=== PATIENT | female | born 1955 | race Caucasian/White ===

== ENCOUNTER → 2016-12-19 | Outpatient (CLI) | payer BC ==
--- NOTE | 2016-12-19 18:09 | WOMENS IMAGING REPORT ---
EXAM DESCRIPTION: BILAT SCREENING MAMMO W/CAD COMPLETED DATE/TIME: 12/19/2016 3:59 pm REASON FOR STUDY: ROUTINE SCREENING; Z12.31 Z12.31 ENCNTR SCREEN MAMMOGRAM FOR MALIGNANT NEOPLASM O F EDMUND COMPARISON: 2011, 2014 TECHNIQUE: Standard craniocaudal and mediolateral oblique views of each breast recorded using epicurioa l acquisition. LIMITATIONS: None. FINDINGS: Findings present which are benign by mammographic criteria. No suspicious masses, calcifi cations or architectural distortion. Pertinent benign findings: Stable benign bilateral nodules and calcifications Read with the assistance of CAD. .[facility] - R2 Cenova Version 1.3 .[facility] - R2 Cenova Version 1.3 .[facility] - R2 Cenova Version 2.4 .[facility] [place] - R2 Cenova Version 2.4 .[facility] - R2 Logistical Engineer Version 9.2 Benign mammographic findings may include one or more of the following: Smooth masses, popcorn/rim/co arse calcifications, asymmetries, post-procedure changes, and lesions with long-standing stability. IMPRESSION: BENIGN MAMMOGRAPHIC FINDINGS. BIRADS 2 BREAST DENSITY: b. There are scattered areas of fibroglandular density. BIRAD: 2 BENIGN FINDING(S) RECOMMENDATION: ROUTINE SCREENING Please consider bilateral screening tomosynthesis in December 2017. COMMENT: The patient has been notified of the results by letter per MQSA requirements. Additional no tification policies are in place for contacting patient with suspicious or incomplete findings. Quality ID #[id number]: The [employer] recommends an annual screening mammogram for women aged 40 years or over. This facility utilizes a reminder system to ensure that all patients receive reminder letters, and/or direct phone calls for appointments. This includes reminders for routine scr eening mammograms, diagnostic mammograms, or other Breast Imaging Interventions when appropriate. Th is patient will be placed in the appropriate reminder system. The [employer] (ACR) has developed recommendations for screening MRI of the breast s in certain patient populations, to be used in conjunction with mammography. Breast MRI surveillanc e may be appropriate for women with more than 20% lifetime risk of developing breast cancer as deter mined by genetic testing, significant family history of the disease, or history of mantle radiation f or Hodgkins Disease. ACR Practice Guidelines 2008. TECHNICAL DOCUMENTATION: FINDING NUMBER: (1) ASSESSMENT: (1) JOB ID: [id number] [employer] All Rights Reserved
== END ==
LOC: WI 15:23
PROVIDERS: ATTEND Family Medicine
DX: Z12.31 Encounter for screening mammogram for malignant neoplasm of breast (principal)
CPT/HCPCS: 77067; G0202

== ENCOUNTER → 2018-04-19 | Outpatient (CLI) | payer BC ==
--- NOTE | 2018-04-19 14:06 | WOMENS IMAGING REPORT ---
EXAM DESCRIPTION: 3D SCREENING MAMMO BILAT COMPLETED DATE/TIME: 04/19/2018 12:09 pm REASON FOR STUDY: BILATERAL SCREENING MAMMO 3D/Z12.31 Z12.31 ENCNTR SCREEN MAMMOGRAM FOR MALIGNANT NEOPLASM OF EDMUND COMPARISON: Multiple since 2011 TECHNIQUE: Standard craniocaudal and mediolateral oblique views of each breast recorded using digita l acquisition and breast tomosynthesis. LIMITATIONS: None. FINDINGS: No masses, calcifications or architectural distortion. No areas of suspicion. Read with the assistance of CAD. .[facility] - R2 Cenova Version 1.3 .[facility] Imaging - R2 Cenova Version 1.3 .[facility] - R2 Cenova Version 2.4 .[facility] [place] R2 Cenova Version 2.4 .[facility] - R2 Geropsychologist Version 9.2 IMPRESSION: NORMAL MAMMOGRAM. BIRADS 1. BREAST DENSITY: b. There are scattered areas of fibroglandular density. BIRAD: 1 NEGATIVE RECOMMENDATION: ROUTINE SCREENING Please continue yearly bilateral screening mammography/tomosynthesis in April 2019 COMMENT: The patient has been notified of the results by letter per [place] requirements. Additional no tification policies are in place for contacting patient with suspicious or incomplete findings. Quality ID #[id number]: The [employer] [place] [employer] recommends an annual screening mammogram for women aged 40 years or over. This facility utilizes a reminder system to ensure that all patients receive reminder letters, and/or direct phone calls for appointments. This includes reminders for routine scr eening mammograms, diagnostic mammograms, or other Breast Imaging Interventions when appropriate. Th is patient will be placed in the appropriate reminder system. The [place] [employer] (ACR) has developed recommendations for screening MRI of the breast s in certain patient populations, to be used in conjunction with mammography. Breast MRI surveillanc e may be appropriate for women with more than 20% lifetime risk of developing breast cancer as deter mined by genetic testing, significant family history of the disease, or history of mantle radiation f or Hodgkins Disease. ACR Practice Guidelines 2008. DBT Technology DBT is a type of tomographic mammography. With conventional mammography, overlapping breast tissue ma y make lesions difficult to detect, even with good compression. DBT uses an x-ray tube that rotates a round the breast, taking images at different angles. These images are then combined to create thin sl ices of the breast that the radiologist can view as a 3D reconstruction. The Diurnal unit can perform full-field digital mammograms (2D imaging); or DBT (3D imaging); or both, in a combination mode that quickly performs both the mammogram and the tomosynthesis scan while the breast is still compressed. PQRS 6045F: Fluoroscopic imaging is not utilized for breast tomosynthesis. TECHNICAL DOCUMENTATION: FINDING NUMBER: (1) ASSESSMENT: (1) JOB ID: [id number] [employer]- All Rights Reserved Reading location - IP/workstation name: [facility]
== END ==
LOC: WI 11:40
PROVIDERS: ATTEND Family Medicine
DX: Z12.31 Encounter for screening mammogram for malignant neoplasm of breast (principal)
CPT/HCPCS: 77063; 77067

== ENCOUNTER 2018-05-14 07:29 | Day surgery (SDC) | payer BC ==
[2018-05-14] MEDS ORDERED: PROPOFOL INJ 200 MG/20 ML VIAL IV ONE (07:37)
[2018-05-14 09:32] VITALS: BP 151/80
--- NOTE | 2018-05-14 14:18 | Operative Report ---
Operative Report DATE OF SURGERY: 05/14/18 Operative Report: The risks, benefits and alternatives of the procedure including the risk of bleeding, perforation requiring surgery are explained to the patient in detail and informed consent is obtained. Patient is brought back to the endoscopy suite and placed in the left, lateral decubital position. Timeout was called. Propofol medication is administered. A rectal examination is done which did not reveal any masses, tears or fissures. An Olympus videoscope was introduced into the patient's rectum. The scope was then carefully advanced all the way to the cecum. The cecum was identified by the usual anatomical landmarks including the ileocecal valve as well as the appendiceal office. Photodocumentation was obtained. The scope was then sequentially pulled back via the various segments of the colon including the ascending colon, hepatic flexure, transverse colon, splenic flexure, descending colon and finally into the rectosigmoid portions of the colon. Retroflexion maneuver is performed. The risks benefits and alternatives of the procedure explained to the patient in detail and informed consent is obtained.A GIF Olympus video scope was inserted into the patient's mouth and hypopharynx, the esophagus is identified intubated and insufflated, the scope was then advanced through the esophagus stomach and duodenum, retroflexion maneuver is done the esophagus stomach and first and second portions of the duodenum examined PREOPERATIVE DIAGNOSIS: Change of bowel habits. Personal history of polyps. Dysphagia POSTOPERATIVE DIAGNOSIS: Esophagitis versus Arnett's status post biopsy. Schatzki's ring that is broken. Gastritis status post biopsy. Hiatal hernia. Colon polyps that I removed via biopsy forceps. Internal hemorrhoids OPERATION: Colonoscopy with biopsy. EGD with biopsy SURGEON: SOPHIE TAYLOR ANESTHESIA: LMAC TISSUE REMOVED OR ALTERED: As noted above. COMPLICATIONS: None. ESTIMATED BLOOD LOSS: None. INTRAOPERATIVE FINDINGS: As noted above. PROCEDURE: Patient tolerated the procedure well. No immediate postprocedure complications are noted. Patient discharged in good condition. Discharge date 05/14/2018. Discharge diet: Regular. Discharge activity: Regular. 2-3-week follow-up to discuss findings. Patient is instructed to call the office or proceed to the emergency room should there be any further problems or questions. Wait on the pathology. 3-5-year surveillance colonoscopy.
== END 2018-05-14 09:13 | disposition home or self-care (01) ==
LOC: END 07:29
PROVIDERS: ATTEND Internal Medicine Gastroenterology
DX: K63.5 Polyp of colon (principal); K64.8 Other hemorrhoids; Z86.010 Personal history of colon polyps; K22.2 Esophageal obstruction; K44.9 Diaphragmatic hernia without obstruction or gangrene; K29.50 Unspecified chronic gastritis without bleeding; K21.9 Gastro-esophageal reflux disease without esophagitis
CPT/HCPCS: 43239; 45380; 88305 ×2; J2704

== ENCOUNTER 2019-10-29 17:51 | Emergency (ER) | payer BC ==
[2019-10-29 17:56] VITALS: BP 156/81
--- NOTE | 2019-10-29 18:16 | ER Document Report ---
ED Head/Face/Scalp Injury - General Chief Complaint: Head Injury without LOC Stated Complaint: HEAD PAIN Primary Care Provider: GALINA PERALTA MD [Primary Care Provider] - Follow up in 3-5 days Mode of Arrival: Ambulatory Information source: Patient Notes: 64-year-old female presented to ED for complaint of a head injury to the right forehead. She states a pot fell off of the part hook hitting her in the head. She is alert oriented respirations regular nonlabored speaking in full sentences. She has poor eye motion. She has no neurological deficits. She has no tenderness to her scalp. She has no tenderness to her neck. She has no tenderness to her back. TRAVEL OUTSIDE OF THE [place] IN LAST 30 DAYS: No - HPI Patient complains to provider of: Contusion - Forehead, Swelling Injury to: Forehead Location of problem: Forehead Occurred: Just prior to arrival Where: Home, Indoors Timing: Still present Context: Swelling, Other - Contusion to the forehead Loss consciousness: No loss of consciousness Remembers: Injury, Coming to hospital - Related Data Allergies/Adverse Reactions: No Known Allergies Allergy (Verified 10/29/19 18:04) Home Medications: omeprazole, oxycodone, atorvastatin Past Medical History - General Information source: Patient - Social History Smoking Status: Current Every Day Smoker Chew tobacco use (# tins/day): No Frequency of alcohol use: None Drug Abuse: None Lives with: Family Family History: Reviewed & Not Pertinent Patient has homicidal ideation: No - Past Medical History Cardiac Medical History: Reports: None Pulmonary Medical History: Reports: Hx Pneumonia EENT Medical History: Reports: None Neurological Medical History: Reports: None Endocrine Medical History: Reports: None Renal/ Medical History: Reports: None Malignancy Medical History: Reports: None GI Medical History: Reports: Hx Hiatal Hernia Musculoskeletal Medical History: Reports Hx Arthritis Skin Medical History: Reports None Psychiatric Medical History: Reports: None Traumatic Medical History: Reports: None Infectious Medical History: Reports: None Past Surgical History: Reports: Hx Orthopedic Surgery - cervical - Immunizations Hx Diphtheria, Pertussis, Tetanus Vaccination: No Review of Systems - Review of Systems Constitutional: No symptoms reported EENT: No symptoms reported Cardiovascular: No symptoms reported Respiratory: No symptoms reported Gastrointestinal: No symptoms reported Genitourinary: No symptoms reported Female Genitourinary: No symptoms reported Musculoskeletal: No symptoms reported Skin: Change in color Hematologic/Lymphatic: No symptoms reported Neurological/Psychological: No symptoms reported, Headaches - Mild headache. denies: Weakness, Gait changes, Loss of power, Speech impairment, Numbness, Tingling -: Yes All other systems reviewed and negative Physical Exam - Vital signs Vitals: Temp Pulse Resp BP Pulse Ox 98.4 F 86 16 156/81 H 96 10/29/19 17:54 10/29/19 17:54 10/29/19 17:54 10/29/19 17:54 10/29/19 17:54 Interpretation: Normal - General General appearance: Appears well, Alert - HEENT Head: Ecchymosis - Swollen hematoma to the right forehead, Tenderness Eyes: Normal Pupils: PERRL Visual brothers normal: Yes Ears: Normal External canal: Normal Tympanic membrane: Normal Sinus: Normal Nasal: Normal Mouth/Lips: Normal Mucous membranes: Normal Pharynx: Normal Neck: Normal - Respiratory Respiratory status: No respiratory distress Chest status: Nontender Breath sounds: Normal Chest palpation: Normal - Cardiovascular Rhythm: Regular Heart sounds: Normal auscultation Murmur: No - Abdominal Inspection: Normal Distension: No distension Bowel sounds: Normal Tenderness: Nontender Organomegaly: No organomegaly - Back Back: Normal, Nontender - Extremities General upper extremity: Normal inspection, Nontender, Normal color, Normal ROM, Normal temperature General lower extremity: Normal inspection, Nontender, Normal color, Normal ROM, Normal temperature, Normal weight bearing. No: Atilio's sign - Neurological Neuro grossly intact: Yes Cognition: Normal Orientation: AAOx4 Jaya Coma Scale Eye Opening: Spontaneous Jaya Coma Scale Verbal: Oriented Hallowell Coma Scale Motor: Obeys Commands Jaya Coma Scale Total: 15 Speech: Normal Cranial nerves: Normal Cerebellar coordination: Normal Motor strength normal: LUE, RUE, LLE, RLE Additional motor exam normals: Equal pet walker Babinski reflex: Normal (flexor plantar) Sensory: Normal Biceps - Reflex grade: 2 = Normal Triceps - Reflex grade: 2 = Normal Brachioradialis - Reflex grade: 2 = Normal Knee - Reflex grade: 2 = Normal Ankle - Reflex grade: 2 = Normal - Psychological Associated symptoms: Normal affect, Normal mood - Skin Skin Temperature: Warm Skin Moisture: Dry Skin Color: Normal Course - Re-evaluation Re-evalutation: 10/29/19 20:49 Patient was alert oriented respirations regular nonlabored speaking in full sentences pupils equal and react to light walks with even steady gait no neurological deficits noted. Patient states she barely has a headache at this time. She denies any nausea or vomiting. She denies any change in orientation or mentation. She is able to answer all questions appropriately. - Vital Signs Vital signs: Temp Pulse Resp BP Pulse Ox 98.4 F 86 16 156/81 H 96 10/29/19 18:05 10/29/19 17:54 10/29/19 17:54 10/29/19 17:54 10/29/19 17:54 Discharge - Discharge Clinical Impression: Head injury, acute Qualifiers: Encounter type: initial encounter Qualified Code(s): S09.90XA - Unspecified injury of head, initial encounter Condition: Stable Disposition: HOME, SELF-CARE Additional Instructions: Head Injury Precautions At this point, there is no evidence that your head injury is serious. Observation is necessary, however. Take only clear liquids for the first few hours, unless told otherwise by the doctor. If no pain medication was prescribed, you may take acetaminophen according to the directions on the bottle. Do not take any medication that may alter your level of alertness (unless you've discussed it with the doctor first). Limit activity for the first 24 hours. Bed rest is best. During the first 24 hours, check to see approximately every two to three hours that the patient is easily arousable, responds normally, and can perform common tasks such as walking without difficulty. Contact your doctor or go to the hospital if any of the following things occur: Persistent vomiting, difficulty in arousing the patient, worsening or continued headache, or failure to improve as expected. Head injuries can cause symptoms that persist for a few days or even a few weeks. Ice Packs Apply ice packs frequently against the painful area. Many different schedules are recommended, such as "20 minutes on, 20 minutes off" or "one hour ice, two hours rest." If you need to work, you may need to go longer between ice treatments. You should plan to have the area ice packed AT LEAST one fourth of the time. The ice should be applied over the wrap, tape, or splint, or over a layer of cloth -- not directly against the skin. Some ice bags have a built-in cloth and can be put directly on the skin. Acetaminophen Acetaminophen may be taken for pain relief or fever control. It's much safer than aspirin, offering a wider range of "safe" dosages. It is safe during . Some brand names are Tylenol, Panadol, Datril, Anacin 3, Tempra, and Liquiprin. Acetaminophen can be repeated every four hours. The following are maximum recommended dosages: WEIGHT Dose Drops Elixir Chewable(80mg) (LBS.) drprs=droppers tsp=teaspoon 6 40 mg .4 ml (1/2) 6-11 80 mg .8 ml (full) 1/2 tsp 1 tab 12-16 120 mg 1 1/2 drprs 3/4 tsp 1 1/2 tabs 17-23 160 mg 2 drprs 1 tsp 2 tabs 24-30 240 mg 3 drprs 1 1/2 tsp 3 tabs 30-35 320 mg 2 tsp 4 tabs 36-41 360 mg 2 1/4 tsp 4 1/2 tabs 42-47 400 mg 2 1/2 tsp 5 tabs 48-53 480 mg 3 tsp 6 tabs 54-59 520 mg 3 1/4 tsp 6 1/2 tabs 60-64 560 mg 3 1/2 tsp 7 tabs 65-70 600 mg 3 3/4 tsp 7 1/2 tabs 71-76 640 mg 4 tsp 8 tabs 77-82 720 mg 4 1/2 tsp 9 tabs 83-88 800 mg 5 tsp 10 tabs >89 pounds or adults 650 mg to 900 mg Acetaminophen can be repeated every four hours. Maximum daily dose not to exceed 4000 mg. These maximum recommended dosages are slightly higher than the dosages written on the product container, but these dosages are very safe and well below the toxic dosage for acetaminophen. Ibuprofen Ibuprofen is an excellent, safe drug for pain control. In addition, it has potent antiinflammatory effects which are beneficial, especially in the treatment of injuries, arthritis, or tendonitis. It's best to take ibuprofen with food. Persons with ulcer disease or allergy to aspirin should notify their physician of this before taking ibuprofen. Take the medication exactly as prescribed. Don't take additional doses unless instructed to do so by your doctor. If you develop wheezing, shortness of breath, hives, faintness, stomach pain, vomiting, or dark black stools, return for re-evaluation at once. FOLLOW-UP CARE: If you have been referred to a physician for follow-up care, call the physicians office for an appointment as you were instructed or within the next two days. If you experience worsening or a significant change in your symptoms, notify the physician immediately or return to the Emergency Department at any time for re-evaluation. Forms: Smoking Cessation Education Referrals: GALINA PERALTA MD [Primary Care Provider] - Follow up in 3-5 days
== END 2019-10-29 18:15 | disposition home or self-care (01) ==
LOC: ER 17:51
DX: S09.90XA Unspecified injury of head, initial encounter (principal); W20.8XXA Other cause of strike by thrown, projected or falling object, initial encounter; Y92.009 Unspecified place in unspecified non-institutional (private) residence as the place of occurrence of the external cause; F17.200 Nicotine dependence, unspecified, uncomplicated
CPT/HCPCS: 99283

== ENCOUNTER → 2020-06-25 | Outpatient (CLI) | payer MEDICARE, BC ==
--- NOTE | 2020-06-25 11:05 | WOMENS IMAGING REPORT ---
EXAM DESCRIPTION: 3D SCREENING MAMMO BILAT IMAGES COMPLETED DATE/TIME: 06/25/2020 9:27 am REASON FOR STUDY: ROUTINE BILATERAL SCREENING;Z12.31 Z12.31 ENCNTR SCREEN MAMMOGRAM FOR MALIGNANT N EOPLASM OF EDMUND COMPARISON: 04/19/2018, 12/19/2016, 08/28/2014 EXAM PARAMETERS: Views: Standard craniocaudal and mediolateral oblique views of each breast recorded using digital acquisition and breast tomosynthesis. Read with the assistance of CAD. .[facility] - [employer] Version 9.2 LIMITATIONS: None. FINDINGS: No suspicious masses, suspicious calcifications or architectural distortion. No areas of c oncern. IMPRESSION: NEGATIVE MAMMOGRAM. BIRADS 1. BREAST DENSITY: b. There are scattered areas of fibroglandular density. BIRAD: ASSESSMENT: 1 NEGATIVE RECOMMENDATION: ROUTINE SCREENING COMMENT: The patient has been notified of the results by letter per MQSA requirements. Additional no tification policies are in place for contacting patient with suspicious or incomplete findings. Quality ID #[id number]: The [place] recommends an annual screening mammogram for women aged 40 years or over. This facility utilizes a reminder system to ensure that all patients receive reminder letters, and/or direct phone calls for appointments. This includes reminders for routine scr eening mammograms, diagnostic mammograms, or other Breast Imaging Interventions when appropriate. Th is patient will be placed in the appropriate reminder system. TECHNICAL DOCUMENTATION: FINDING NUMBER: (1) ASSESSMENT: (1) JOB ID: [id number] 2010 [employer]- All Rights Reserved Reading location - IP/workstation name: [email or web address]
--- OUTSIDE RECORDS SUMMARY | 2020-06-25 14:29 | XMS REPORT ---
:1955 [facility] [address] [place] [address] Care Team Providers Name Role Phone Kel Saravia Attending Clinician Unavailable Marilee Lewis Attending Clinician Unavailable Joni Ramirez Attending Clinician Unavailable Jamal Mackey Attending Clinician Unavailable Kel Saravia Attending Clinician Unavailable Allergies, Adverse Reactions, Alerts This patient has no known allergies or adverse reactions. Medications Ordered Filled Start Stop Current Ordering Indication Dosage Frequency Signature Comments Components Medication Medication Date Date Medication? Clinician (SIG) Name Name Afluria No Afluria Quad Quad 60 mcg (15 60 mcg (15 mcg x mcg x 4)/0.5 mL 4)/0.5 mL intramuscul intramuscu ar susp. lar susp. [id number] EXPIRES 154 [id number] EXPIRES [id number] Amitiza 24 No Amitiza 24 mcg capsule mcg TAKE ONE capsule CAPSULE BY TAKE ONE MOUTH TWICE CAPSULE BY DAILY MOUTH TWICE DAILY atorvastati No atorvastat n 20 mg in 20 mg tablet TAKE tablet ONE TABLET TAKE ONE BY MOUTH TABLET BY EVERY DAY MOUTH EVERY DAY azithromyci No azithromyc n 250 mg in 250 mg tablet tablet benzonatate No benzonatat 100 mg e 100 mg capsule capsule Chantix No Chantix Continuing Continuing Month Box 1 Month Box mg tablet 1 mg tablet Evzio 2 No Evzio 2 mg/0.4 mL mg/0.4 mL injection,a injection, uto-injecto auto-injec r Call 911. tor Call Inject 911. outer thigh Inject if signs of outer overdose. thigh if May repeat signs of dose overdose. q2-3min May repeat until pt dose responsive q2-3min or EMS until pt arrives responsive or EMS arrives fluconazole No fluconazol 150 mg e 150 mg tablet tablet fluticasone No fluticason propionate e 50 propionate mcg/actuati 50 on nasal mcg/actuat spray,suspe ion nasal nsion spray,susp ension lidocaine 5 No lidocaine % topical 5 % ointment topical APPLY ONE ointment TO TWO APPLY ONE GRAMS TO TO TWO AFFECTED GRAMS TO AREAS 3-4 AFFECTED TIMES A DAY AREAS 3-4 RUB IN FOR TIMES A 1-2 MINS DAY RUB IN MAX OF 8 FOR 1-2 GRAMS PER MINS MAX DAY OF 8 GRAMS PER DAY lorazepam 1 No lorazepam mg tablet 1 mg TAKE ONE tablet TABLET BY TAKE ONE MOUTH TWICE TABLET BY DAILY MOUTH NEEDED TWICE DAILY NEEDED meloxicam No meloxicam 15 mg 15 mg tablet TAKE tablet ONE TABLET TAKE ONE BY MOUTH TABLET BY EVERY DAY MOUTH EVERY DAY olopatadine No olopatadin 0.1 % eye e 0.1 % drops eye drops omeprazole No omeprazole 40 mg 40 mg capsule,del capsule,de ayed layed release release TAKE 1 TAKE 1 CAPSULE BY CAPSULE BY MOUTH EVERY MOUTH DAY BEFORE EVERY DAY MEAL BEFORE MEAL oxycodone-a No 1 Q7H oxycodone- cetaminophe acetaminop n 10 mg-325 hen 10 mg tablet mg-325 mg TAKE ONE tablet TABLET BY TAKE ONE MOUTH EVERY TABLET BY 6 TO 8 MOUTH HOURS EVERY 6 TO NEEDED 8 HOURS NEEDED Chantix No Chantix Continuing Continuing Month Box 1 Month Box mg tablet 1 mg tablet Trokendi XR No Trokendi 25 mg XR 25 mg capsule,ext capsule,ex ended tended release release Take 1 cap Take 1 cap by mouth by mouth once daily, once may daily, may increase by increase 1 cap every by 1 cap 7 d max 100 every 7 d mg/day max 100 mg/day topiramate No 1 BID topiramate 50 mg 50 mg tablet Take tablet 1 tablet Take 1 twice a day tablet by oral twice a route for day by 30 days. oral route for 30 days. amoxicillin No amoxicilli 875 n 875 mg-potassiu mg-potassi m um clavulanate clavulanat 125 mg e 125 mg tablet tablet Fluzone No Fluzone High-Dose High-Dose Quad Quad 2020 (PF) 240 (PF) 240 mcg/0.7 mL mcg/0.7 mL IM syringe IM syringe vac vac Problems Condition Condition Condition Status Onset Resolution Last Treatin g Comments Name Details Category Date Date Treatment Clinician Date Shoulder Shoulder Problem Active 2016-06 pain Pain 06-21 00:00: 00 Arthropathy Arthropathy Problem Active of lumbar of Lumbar facet joint Facet Joint Knee pain Knee Pain Problem Active Multiple Multiple Problem Active joint pain Joint Pain Low back Low Back Problem Active pain Pain Lateral Lateral Problem Active epicondylit Epicondylit is is Costal Costal Problem Active chondritis Chondritis Procedures Procedure Date / Time Performed Performing Clinician Devic e OFFICE/OUTPATIENT VISIT EST 2020-06-04 08:45:00 OFFICE/OUTPATIENT VISIT EST 2019-04-17 11:15:00 OFFICE/OUTPATIENT VISIT EST 2019-01-08 13:30:00 PREV VISIT EST AGE 40-64 2018-11-06 11:00:00 OFFICE/OUTPATIENT VISIT EST 2018-10-09 13:15:00 OFFICE/OUTPATIENT VISIT EST 2018-05-22 10:45:00 COLONOSCOPY AND BIOPSY 2018-05-14 00:00:00 OFFICE/OUTPATIENT VISIT NEW 2018-04-13 14:00:00 Neck Surgery 2018-03-22 00:00:00 BEHAV CHNG SMOKING 3-10 MIN 2017-12-08 10:00:00 PREV VISIT EST AGE 40-64 2017-12-08 10:00:00 OFFICE/OUTPATIENT VISIT EST 2017-11-15 09:30:00 OFFICE/OUTPATIENT VISIT EST 2017-08-15 09:45:00 OFFICE/OUTPATIENT VISIT EST 2017-05-05 10:15:00 BEHAV CHNG SMOKING 3-10 MIN 2017-05-05 10:15:00 OFFICE/OUTPATIENT VISIT EST 2016-05-17 08:30:00 Tonsillectomy Cataract Surgery Results Test Description Test Time Test Comments Text Results Atomic Results Result Comments SARS-CoV-2 RNA Resp Ql ABBY+probe 2020-03-21 00:00:00 Test Item Value Reference Range Comments SARS-CoV-2 RNA Resp Ql ABBY+probe Not detected [facility] Case ID: (test code = 06554-3) [id number] SARS-CoV-2, ABBY\S\2020-03-20 12:57:00 Test Item Value Reference Range Comments SARS-CoV-2, ABBY (test code = 04313-2) Not Detected Not Detect ed LIPID PANEL, [id number] 08:27:00 Test Item Value Reference Range Comments NON HDL CHOLESTEROL (test code = 04201577) 106 mg/dL (calc) <130 TRIGLYCERIDES (test code = 92773757) 109 mg/dL <150 LDL-CHOLESTEROL (test code = 60519475) 85 mg/dL (calc) HDL CHOLESTEROL (test code = 96236842) 55 mg/dL >50 CHOL/HDLC RATIO (test code = 71152469) 2.9 (calc) <5.0 CHOLESTEROL, TOTAL (test code = 62996143) 161 mg/dL <200 COMPREHENSIVE METABOLIC [id number] 08:27:00 Test Item Value Reference Range Comments GLUCOSE (test code = 75401493) 84 mg/dL 65-99 BILIRUBIN, TOTAL (test code = 62496431) 0.8 mg/dL 0.2-1.2 PROTEIN, TOTAL (test code = 96224703) 5.9 g/dL 6.1-8.1 eGFR NON-AFR. ESTONIAN (test code = 97 mL/min/1.73m2 > OR = 60 69614587) GLOBULIN (test code = 75673032) 2.1 g/dL (calc) 1.9-3.7 CREATININE (test code = 72753860) 0.59 mg/dL 0.50-0.99 BUN/CREATININE RATIO (test code = 10 (calc) 6-22 14439911) ALBUMIN/GLOBULIN RATIO (test code = 1.8 (calc) 1.0-2.5 98917194) ALKALINE PHOSPHATASE (test code = 87 U/L 33-130 99566008) SODIUM (test code = 64911201) 143 mmol/L 135-146 eGFR (test code = 112 mL/min/1.73m2 > OR = 60 44608573) UREA NITROGEN (BUN) (test code = 80380666) 6 mg/dL 7-25 CHLORIDE (test code = 11073412) 106 mmol/L 98-110 ALBUMIN (test code = 66076465) 3.8 g/dL 3.6-5.1 CALCIUM (test code = 98221885) 8.8 mg/dL 8.6-10.4 AST (test code = 61607791) 13 U/L 10-35 CARBON DIOXIDE (test code = 53795178) 31 mmol/L 20-32 POTASSIUM (test code = 06323645) 3.9 mmol/L 3.5-5.3 ALT (test code = 24215876) 10 U/L 6-29 [id number] 08:27:000.60CBC (H/H, RBC, INDICES, WBC, PLT)2019-04-18 08:27:00 Test Item Value Reference Range Comments MPV (test code = 64400673) 10.4 fL 7.5-12.5 WHITE BLOOD CELL COUNT (test code = 7.6 Thousand/uL 3.8-10.8 72373459) HEMATOCRIT (test code = 29750603) 41.5 % 35.0-45.0 MCH (test code = 74350624) 30.0 pg 27.0-33.0 MCV (test code = 90536049) 89.6 fL 80.0-100.0 PLATELET COUNT (test code = 33185768) 208 Thousand/uL 140-400 MCHC (test code = 15604693) 33.5 g/dL 32.0-36.0 RDW (test code = 49741327) 13.3 % 11.0-15.0 HEMOGLOBIN (test code = 30600213) 13.9 g/dL 11.7-15.5 RED BLOOD CELL COUNT (test code = 60782298) 4.63 Million/uL 3.80 -5.10 LIPID PANEL, [id number] 08:32:42842RVJWQ METABOLIC [id number] 08:32:00 Test Item Value Reference Range Comments CHLORIDE (test code = 58967748) 105 mmol/L 98-110 BUN/CREATININE RATIO (test code = NOT APPLICABLE (calc) 6-00) CARBON DIOXIDE (test code = 86132184) 29 mmol/L 20-32 THINPREP TIS AND HPV mRNA [id number] 00:00:00 Test Item Value Reference Range Comments SOURCE: (test code = None given 55524678) LMP: (test code = 43418818) NONE GIVEN INTERPRETATION/RESULT: Negative for intraepithelial (test code = 84663541) lesion or malignancy. COMMENT: (test code = This Pap test has been evaluated 76442015) with computer assisted technology. PREV. BX: (test code = NONE GIVEN 94186334) HPV mRNA E6/E7 (test code = Not Detected Not Detected 40852610) PREV. PAP: (test code = NONE GIVEN 29714286) CLINICAL INFORMATION: (test None given code = 07256749) CBC (H/H, RBC, INDICES, WBC, PLT)2017-11-15 00:00:00 Test Item Value Reference Range Comments MCH (test code = 98826379) 29.8 pg 27.0-33.0 PLATELET COUNT (test code = 30406163) 225 Thousand/uL 140-400 RDW (test code = 67412236) 13.5 % 11.0-15.0 MCHC (test code = 78941044) 33.2 g/dL 32.0-36.0 RED BLOOD CELL COUNT (test code = 78720133) 4.29 Million/uL 3.80 -5.10 HEMATOCRIT (test code = 49714648) 38.5 % 35.0-45.0 HEMOGLOBIN (test code = 54307028) 12.8 g/dL 11.7-15.5 WHITE BLOOD CELL COUNT (test code = 4.6 Thousand/uL 3.8-10.8 44996586) MCV (test code = 50784680) 89.7 fL 80.0-100.0 MPV (test code = 78407408) 11.0 fL 7.5-12.5 [id number] 00:00:000.36T4 (THYROXINE), [id number] 00:00:006.2T3, TOTAL 2017-11-15 00:00:25577LNVXGBKWHNNRM METABOLIC [id number] 00:00:00 Test Item Value Reference Range Comments CREATININE (test code = 36920207) 0.54 mg/dL 0.50-0.99 AST (test code = 51102475) 12 U/L 10-35 ALT (test code = 83150996) 7 U/L 6-29 CHLORIDE (test code = 22092969) 105 mmol/L 98-110 eGFR (test code = 116 mL/min/1.73m2 > OR = 60 88540348) UREA NITROGEN (BUN) (test code = 27719876) 5 mg/dL 7-25 PROTEIN, TOTAL (test code = 35930289) 5.7 g/dL 6.1-8.1 GLUCOSE (test code = 61439989) 89 mg/dL 65-139 GLOBULIN (test code = 79978653) 2.1 g/dL (calc) 1.9-3.7 ALBUMIN/GLOBULIN RATIO (test code = 1.7 (calc) 1.0-2.5 86939348) BILIRUBIN, TOTAL (test code = 63196895) 0.6 mg/dL 0.2-1.2 BUN/CREATININE RATIO (test code = 9 (calc) 6-22 62183432) POTASSIUM (test code = 71315680) 3.5 mmol/L 3.5-5.3 ALBUMIN (test code = 56726772) 3.6 g/dL 3.6-5.1 CALCIUM (test code = 43460745) 8.6 mg/dL 8.6-10.4 eGFR NON-AFR. ESTONIAN (test code = 100 mL/min/1.73m2 > OR = 60 60194234) ALKALINE PHOSPHATASE (test code = 75 U/L 33-130 84510875) SODIUM (test code = 34049259) 142 mmol/L 135-146 CARBON DIOXIDE (test code = 44426082) 29 mmol/L 20-31 T3, [id number] 00:00:003.8T4, [id number] 00:00:000.9HEMOGLOBIN A1c WITH [id number] 00:00:00 Test Item Value Reference Range Comments eAG (mg/dL) (test code = 92880583) 100 (calc) HEMOGLOBIN A1c (test code = 87910300) 5.1 % of total Hgb <5.7 eAG (mmol/L) (test code = 58220164) 5.5 (calc) LIPID [id number] 00:00:00 Test Item Value Reference Range Comments CHOLESTEROL, TOTAL (test code = 53552154) 175 mg/dL <200 LDL-CHOLESTEROL (test code = 95324135) 102 mg/dL (calc) HDL CHOLESTEROL (test code = 42070996) 48 mg/dL >50 TRIGLYCERIDES (test code = 24240954) 151 mg/dL <150 CHOL/HDLC RATIO (test code = 60489112) 3.6 (calc) <5.0 NON HDL CHOLESTEROL (test code = 45528475) 127 mg/dL (calc) <130 Assessments Condition Name Status Diagnosis Date Treating Clinici an Hyperlipidemia, unspecified Active Other fatigue Active Encntr screen mammogram for malignant Active neoplasm of breast Tobacco use Active Low back pain Active 2020-05-27 13:02:14 Knee pain Active 2020-05-27 13:02:16 Multiple joint pain Active 2020-05-27 13:02:17 Cervical post-laminectomy syndrome Active 2020-02-24 11 :34:23 Arthropathy of lumbar facet joint Active 2020-02-24 11: 23:24 Lateral epicondylitis Active 2020-02-24 11:23:21 Knee pain Active 2020-02-24 11:23:22 Multiple joint pain Active 2020-02-24 11:23:24 Shoulder pain Active 2020-02-24 11:23:24 Long-term drug therapy Active 2020-02-24 13:46:16 Multiple joint pain Active 2019-12-24 11:21:02 Degeneration of cervical intervertebral Active 11:27:23 disc Headache Active 2019-12-24 11:29:54 Arthropathy of lumbar facet joint Active 2019-12-24 11: 21:02 Bilateral knee pain Active 2019-11-04 09:50:57 Low back pain Active 2019-11-04 09:34:30 Multiple joint pain Active 2019-11-04 09:34:32 Arthropathy of lumbar facet joint Active 2019-11-04 09: 34:33 Knee pain Active 2019-09-05 08:35:59 Low back pain Active 2019-09-05 08:35:58 Multiple joint pain Active 2019-09-05 08:36:00 Arthropathy of lumbar facet joint Active 2019-09-05 08: 36:01 Cervical post-laminectomy syndrome Active 2019-06-27 10 :55:18 Lumbar spondylosis Active 2019-06-27 10:55:22 Knee pain Active 2019-06-27 10:23:48 Hyperlipidemia, unspecified Active Other fatigue Active Otitis media, unspecified, bilateral Active Body mass index (BMI) 23.0-23.9, adult Active Ganglion, unspecified site Active Anxiety disorder, unspecified Active Hyperlipidemia, unspecified Active Tobacco use Active Encntr for general adult medical exam Active w/o abnormal findings Hyperglycemia, unspecified Active Insomnia, unspecified Active Encounter For Screening For Depression Active Acute upper respiratory infection, Active unspecified Acute suppr otitis media w/o spon rupt Active ear drum, right ear Tobacco use Active Body mass index (BMI) 23.0-23.9, adult Active Polyp of colon Active Other hemorrhoids Active Gastro-esophageal reflux disease Active without esophagitis Diaphragmatic hernia without Active obstruction or gangrene Personal history of colonic polyps Active Family history of malignant neoplasm of Active digestive organs Benign neoplasm of sigmoid colon Active Rectal polyp Active Polyp of colon Active Change in bowel habit Active Family history of malignant neoplasm of Active digestive organs Dysphagia, unspecified Active Encntr for general adult medical exam Active w/o abnormal findings Tobacco use Active Encounter for screening for malignant Active neoplasm of colon Body mass index (BMI) 24.0-24.9, adult Active Hyperlipidemia, unspecified Active Other fatigue Active Hyperglycemia, unspecified Active Encntr screen mammogram for malignant Active neoplasm of breast Tobacco use Active Tobacco abuse counseling Active Anxiety disorder, unspecified Active Major depressive disorder, single Active episode, unspecified Bronchitis, not specified as acute or Active chronic Acute suppr otitis media w/o spon rupt Active ear drum, recur, bi Tobacco abuse counseling Active Tobacco use Active Anxiety disorder, unspecified Active Major depressive disorder, single Active episode, unspecified Lumbago with sciatica, left side Active Unspecified open wound of unspecified Active hand, subs encntr Encounters Start End Encounter Admission Attending Care Care Encounter Date/Time Date/Time Type Type Clinicians Facility Department ID 2020-06-04 2020-06-04 [place] [address] [id number] 08:45:00 08:45:00 Kel Hilliard [id number] s [id number] and [id number] [facility], 2020-05-27 2020-05-27 [facility] 323 2_ 00:00:00 00:00:00 [facility] 223 PA-C: [address], [place] [address], Ph. 2020-02-24 2020-02-24 [facility] 323 2_ 00:00:00 00:00:00 [facility] 921 PA-C: [address] [facility], [place] [address], Ph. 2019-12-24 2019-12-24 [facility] 323 2_ 00:00:00 00:00:00 [facility] 721 PA-C: [address] [place] [address], [place] [address], Ph. 2019-11-04 2019-11-04 [facility] 323 2_ 00:00:00 00:00:00 [facility] 601 PA-C: [address], [place] [address], Ph. 2019-09-05 2019-09-05 [facility] 323 2_ 00:00:00 00:00:00 [facility] 402 PA-C: [address], [place] [address], Ph. 2019-06-27 2019-06-27 [facility] 323 2_ 00:00:00 00:00:00 [facility] 123 PA-C: [address] [place] [address], [place] [address], Ph. 2019-04-17 2019-04-17 Outpatient Manjit [facility] 78 [id number] 11:15:00 11:15:00 Kle Children [id number] s [id number] and [id number] [facility], 2019-01-08 2019-01-08 Outpatient Manjit [facility] 71 [id number] 13:30:00 13:30:00 Kel Children???s [id number] and [id number] [facility] [id number] Clini 2018-11-06 2018-11-06 Outpatient Debbie [facility] [id number] 11:00:00 11:00:00 Marilee Children [id number] s [id number] and [id number] [facility], 2018-10-09 2018-10-09 Outpatient Debbie [facility] [id number] 13:15:00 13:15:00 Marilee Children [id number] s [id number] and [id number] [facility], 2018-05-22 2018-05-22 [facility] [id number] 10:45:00 10:45:00 Children [id number] s [id number] and [id number] [facility], KATHI 2018-05-14 2018-05-14 Outpatient James morales [facility] opal [id number] 00:00:00 00:00:00 Children [id number] s [id number] and [id number] [facility], KATHI 2018-04-13 2018-04-13 Outpatient James morales [facility] opal [id number] 14:00:00 14:00:00 Children [id number] s [id number] and [id number] [facility], KATHI 2017-12-08 2017-12-08 Outpatient Narendra [facility] 35 [id number] 10:00:00 10:00:00 Jamal Children [id number] s [id number] and [id number] [facility], KATHI 2017-11-15 2017-11-15 Outpatient Manjit [facility] 61 [id number] 09:30:00 09:30:00 Kel Children [id number] s [id number] and [id number] [facility], [facility]I 2017-08-15 2017-08-15 Outpatient Manjit [facility] [id number] 09:45:00 09:45:00 Kel Children [id number] s [id number] and [id number] [facility] 2017-05-05 2017-05-05 Outpatient Manjit [facility] CA [id number] 10:15:00 10:15:00 Kel Children [id number] s [id number] and [id number] [facility] 2016-05-17 2016-05-17 Outpatient APOLLO Saravia[place] 0D [id number] 08:30:00 08:30:00 Kel Children [id number] s [id number] and [id number] [facility], KATHI Plan of Treatment Planned Activity Planned Date Details Comments Future Appointment 2020-07-28 00:00:00 Raza Ocampo, [address]; [address], [place] [address] Social History Smoking Status Start Date Stop Date Heavy Tobacco Smoker Vital Signs Vital Name Observation Time Observation Value Comments Height 2020-05-27 00:00:00 66 [in_i] Height 2020-02-24 00:00:00 66 [in_i] Height 2019-12-24 00:00:00 66 [in_i] Height 2019-09-05 00:00:00 66 [in_i] BP Diastolic 2019-06-27 00:00:00 94 mm[Hg] Height 2019-06-27 00:00:00 66 [in_i] BMI (Body Mass Index) 2019-06-27 00:00:00 23.1 kg/m2 BP Systolic 2019-06-27 00:00:00 148 mm[Hg] Body Weight 2019-06-27 00:00:00 143 [lb_av] Hospital Discharge Instructions 1. Low back pain back care and preventing injuries: care instructions getting back to normalafter low back pain: care instructions learning about relief for back pain topiramate 50 mg tablet oxycodone-acetaminophen 10 mg-325 mg tablet 2. Knee pain knee pain or injury: care instructions 3. Multiple joint pain Discussion Note NOTE: This encounter has been documented utilizing voice recognition software. While this note has been edited for accuracy, the software periodicallymisinterprets speech resulting in errors that might not have been caught during the editing process.In the event that you find an unusual error in this record, please notify us to resolve the issue.r 1. Cervical post-laminectomy syndrome compounded medication oxycodone- acetaminophen 10 mg-325 mg tablet topiramate 50 mg tablet 2. Arthropathy of lumbar facet joint 3. Lateral epicondylitis tennis elbow: care instructions 4. Knee pain knee pain or injury: care instructions 5. Multiple joint pain 6. Shoulder pain shoulder pain: care instructions 7. Long-term drug therapy drug screen, urine drug screen, urine Discussion Note NOTE: This encounter has been documented utilizing voice recognition software. While this note has been edited for accuracy, the software periodically misinterprets speech resulting in errors that might not have been caught during the editing pr ocess. In the event that you find an unusual error in this record, please notify us to resolve the issue.1. Arthropathy of lumbar facet joint oxycodone- acetaminophen 10 mg-325 mg tablet 2. Multiple joint pain 3. Degeneration of cervical intervertebral disc cervical disc disease: care instructions 4. Headache headache: care instructions Trokendi XR 25 mg capsule,extended release DiscussionNote NOTE: This encounter has been documented utilizing voice recognition software. While this note has been edited for accuracy, the software periodically misinterprets speech resulting in errors that might not have been caught during the editing process. In the event that you find an unusual error in this record, please notify us to resolve the issue.1. Bilateral knee pain oxycodone-acetaminophen 10 mg-325 mg tablet 2. Low back pain back care and preventing injuries: care instructions getting back to normal after low back pain: care instructions learning about relief for back pain 3. Multiple joint pain 4. Arthropathy of lumbar facet joint Discussion Note NOTE: This encounter has been documented utilizing voice recognition software. While this note has been edited for accuracy, the software periodically misinterprets speech resulting in errors that might not have been caught during the editing process. In the event that you find an unusual error in this record, please notify us to resolve the issue.1. Knee pain knee pain or injury: care instructions oxycodone-acetaminophen 10 mg-325 mg tabl et 2. Low back pain back care and preventing injuries: care instructions getting back to normal after low back pain: care instructions learning about relief for back pain 3. Multiple joint pain 4. Arthropathy of lumbar facet joint Discussion Note NOTE: This encounter has been documentedutilizing voice recognition software. While this note has been edited for accuracy, the software periodically misinterprets speech resulting in errors that might not have been caught during the editingprocess. In the event that you find an unusual error in this record, please notify us to resolve theissue.1. Cervical post-laminectomy syndrome oxycodone-acetaminophen 10 mg-325 mg tablet 2. Lumbar spondylosis 3. Knee pain knee pain or injury: care instructions Discussion Note NOTE: This encounter has been documented utilizing voice recognition software. While this note has been edited for nadia villar, the software periodically misinterprets speech resulting in errors that might not have been caught during the editing process. In the event that you find an unusual error in this record, please notify us to resolve the issue.
== END ==
LOC: WI 09:08
PROVIDERS: ATTEND Family Medicine
DX: Z12.31 Encounter for screening mammogram for malignant neoplasm of breast (principal)
CPT/HCPCS: 77063; 77067

== ENCOUNTER → 2020-06-26 | Outpatient (CLI) | payer MEDICARE, BC ==
[~2020-06-26] MED LIST: COVID-19 VACCINE (PFIZER)/PF 30 MCG/0.3 ML VIAL IM ONE; EPINEPHRINE INJ/PF 1 MG/1 ML AMPULE IM PRN
== END ==
LOC: EMPHEALTH 08:02
PROVIDERS: ATTEND Internal Medicine
DX: Z23 Encounter for immunization (principal)
CPT/HCPCS: 91300